=== PATIENT | female | born 2000 | race Two or more races ===

== ENCOUNTER 2024-02-04 17:40 | Inpatient (IN) | payer OTHER ==
[2024-02-04] MEDS: ELECTROLYTE-148 SOLN 1,000 ML IV SCH (18:45)
[2024-02-04 19:20] VITALS: BMI 32.8
[2024-02-04 19:20] LABS: BASO % 0.2 % (0-2.0); EOS % 0.2 % (0-4.5); HEMATOCRIT 35.1 % (32.4-45.2); HEMOGLOBIN 12.3 GM/dL (10.7-15.3); LYMPH % 19.5 % (8-40); MCH 30.7 pg (25.7-33.7); MCHC 34.9 g/dl (32.0-36.0); MEAN CELL VOLUME 87.8 fl (80-96); NEUT % 75.1 % (42.8-82.8); PLATELET COUNT 205 10^3/uL (134-434); RDW 14.2 % (11.6-15.6); WHITE BLOOD COUNT 7.8 K/mm3 (4.0-10.0)
[2024-02-04] MEDS: DINOPROSTONE 10 MG VAGINAL SUPPOSITORY VG ONE (19:20)
[2024-02-04 19:30] LABS: INR 0.94 (0.83-1.09); PROTHROMBIN TIME (PATIENT) 10.8 SEC (9.7-13.0)
[2024-02-04 19:32] LABS: ACTIVATED PTT 28.9 SECONDS (25.2-36.5)
[2024-02-04 19:33] LABS: POTASSIUM 3.7 mmol/L (3.5-5.1)
[2024-02-04 19:36] LABS: BLOOD UREA NITROGEN 15.7 mg/dL (7-18); CALCIUM 8.9 mg/dL (8.5-10.1)
[2024-02-04 19:40] LABS: CREATININE 0.7 mg/dL (0.55-1.3)
[2024-02-05] MEDS ORDERED: BUTORPHANOL TARTRATE 2 MG/ML VIAL ONE (01:39)
[2024-02-05] MEDS ORDERED: PROMETHAZINE HCL 25 MG/1 ML VIAL ONE (01:39)
[2024-02-05] MEDS: PROMETHAZINE HCL 25 MG/1 ML VIAL IVPB ONE (01:45)
[2024-02-05] MEDS: BUTORPHANOL TARTRATE 1 MG/ML VIAL IVPB ONE (01:45)
[2024-02-05] MEDS: AMPICILLIN - 2 GM in SODIUM CHLORIDE 100 ML IVPB ONE (02:15)
[2024-02-05] MEDS ORDERED: AMPICILLIN SODIUM 2 GM VIAL ONE (02:15)
[2024-02-05] MEDS ORDERED: AMPICILLIN SODIUM 1 GM VIAL ONE ×4 (05:57→18:47)
[2024-02-05] MEDS: AMPICILLIN - 1 GM in SODIUM CHLORIDE 100 ML IVPB SCH (06:00)
[2024-02-05] MEDS ORDERED: FENTANYL/BUPIVACAINE/NS/PF - PCEA - 50 ML DISP.SYRIN EP ONE ×4 (07:40→19:37)
[2024-02-05] MEDS ORDERED: BUPIVACAINE HCL/PF 0.25% (2.5MG/ML) 10 ML VIAL ONE ×3 (07:41→15:30)
[2024-02-05] MEDS ORDERED: FENTANYL CITRATE/PF 50 MCG/ML VIAL ONE ×8 (07:41→21:56)
[2024-02-05] MEDS ORDERED: morphine SULFATE/PF 1 MG/2 ML (2cc Syringe - QUVA) ONE ×3 (07:58→20:02)
[2024-02-05] MEDS: FENTANYL/BUPIVACAINE/NS/PF - PCEA - 50 ML DISP.SYRIN EP SCH (08:00)
[2024-02-05] MEDS ORDERED: ceFAZolin SODIUM 1 GM VIAL ONE (08:06)
[2024-02-05] MEDS ORDERED: SODIUM CHLORIDE 0.9% P/F 10 ML VIAL IJ ONE (08:06)
[2024-02-05] MEDS ORDERED: NALOXONE HCL 0.4 MG/ML VIAL IVPUSH PRN (08:25)
[2024-02-05] MEDS ORDERED: OXYTOCIN 30 UNITS in 0.9% NS 30 UNIT/500 ML INFUS.BAG IVPB ONE (09:52)
[2024-02-05] MEDS: OXYTOCIN 30 UNITS in 0.9% NS 30 UNIT/500 ML INFUS.BAG IVPB SCH (10:00)
[2024-02-05] MEDS: OXYTOCIN 20 UNITS in 0.9% NS 20 UNIT/1,000 ML INFUS.BAG IV SCH (11:05)
[2024-02-05] MEDS ORDERED: LIDO 2%/EPI 1:200000 PRESRVFRE (20 ML SDVIAL) ONE (15:30)
[2024-02-05] MEDS ORDERED: METHYLERGONOVINE MALEATE 0.2 MG/1 ML AMP IM PRN (19:35)
[2024-02-05] MEDS ORDERED: IBUPROFEN 800 MG/8 ML IJ IVPB PRN (19:35)
[2024-02-05] MEDS ORDERED: PROPOFOL 20 ML ONE ×3 (20:10→20:34)
[2024-02-05] MEDS ORDERED: SUCCINYLCHOLINE CHLORIDE 200 MG/10 ML SYRINGE ONE (20:11)
[2024-02-05] MEDS ORDERED: ROCURONIUM BROMIDE 50 MG/5 ML VIAL ONE (20:49)
[2024-02-05] MEDS ORDERED: SUGAMMADEX SODIUM 200 MG/2 ML VIAL ONE (20:52)
[2024-02-05 20:55] LABS: CORD HCO3 23.9 mmHg (20-29); CORD PCO2 54.2 mmHg (30-78); CORD pH 7.263 (7.14-7.44)
[2024-02-05] MEDS ORDERED: DEXAMETHASONE SOD PHOSPHATE 4 MG/1 ML VIAL ONE (21:47)
[2024-02-05] MEDS ORDERED: MIDAZOLAM HCL 2 MG/2 ML SINGLE DOSE VIAL ONE (21:57)
[2024-02-05] MEDS ORDERED: HYDROmorphone HCL CARPU-JECT 2 MG/1 ML DISP.SYRIN ONE (22:13)
[2024-02-05] MEDS ORDERED: OXYTOCIN 20 UNITS in 0.9% NS 20 UNIT/1,000 ML INFUS.BAG IV ONE (22:27)
[2024-02-05] MEDS ORDERED: HYDROmorphone *PCA* 10MG/50ML DISP.SYRIN ONE (22:40)
[2024-02-05] MEDS: HYDROmorphone *PCA* 10MG/50ML DISP.SYRIN PCA SCH (22:53)
[2024-02-06] MEDS: ACETAMINOPHEN 1000 MG/100 ML BAG IVPB ONE (01:43)
[2024-02-06] MEDS: CEFAZOLIN 1 GM in DEXTROSE 5%-WATER - 50 ML IVPB SCH (01:50)
[2024-02-06] MEDS: IBUPROFEN 600 MG TABLET (FP) PO PRN (07:20)
[2024-02-06 07:53] LABS: HEMATOCRIT 32.3 % (32.4-45.2); HEMOGLOBIN 11.3 GM/dL (10.7-15.3); LYMPH % 5.7 % (8-40); MCH 30.6 pg (25.7-33.7); MCHC 34.9 g/dl (32.0-36.0); MEAN CELL VOLUME 87.7 fl (80-96); MEAN PLT VOLUME 9.2 fl (7.5-11.1); MONO % 4.5 % (3.8-10.2); NEUT % 89.8 % (42.8-82.8); PLATELET COUNT 153 10^3/uL (134-434); RBC 3.68 M/mm3 (3.60-5.2); RDW 14.7 % (11.6-15.6); WHITE BLOOD COUNT 15.4 K/mm3 (4.0-10.0)
[2024-02-06] MEDS: ACETAMINOPHEN 325 MG TABLET (FP) PO PRN (08:28)
[2024-02-06] MEDS: SIMETHICONE 80 MG TAB.CHEW (FP) PO PRN (08:29)
[2024-02-06] MEDS: ENOXAPARIN NA (PORCINE) 40 MG/0.4 ML DISP.SYRIN SQ SCH (09:44)
[2024-02-06 13:36] VITALS: RESP 18
[2024-02-06] MEDS: oxyCODONE HCL 5 MG TABLET PO PRN (19:56)
[2024-02-06] MEDS: KETOROLAC TROMETHAMINE 30 MG/1 ML VIAL IM ONE (20:32)
[2024-02-07] MEDS: oxyCODONE HCL 5 MG TABLET PO PRN (00:17)
[2024-02-07] MEDS: BISACODYL 10 MG SUPP.RECT RC PRN (04:46)
[2024-02-08 07:58] LABS: BASO % 0.3 % (0-2.0); EOS % 0.9 % (0-4.5); HEMATOCRIT 29.1 % (32.4-45.2); HEMOGLOBIN 9.9 GM/dL (10.7-15.3); LYMPH % 24.2 % (8-40); MCH 30.3 pg (25.7-33.7); MCHC 34.1 g/dl (32.0-36.0); MEAN CELL VOLUME 88.7 fl (80-96); MEAN PLT VOLUME 8.8 fl (7.5-11.1); MONO % 4.9 % (3.8-10.2); NEUT % 69.7 % (42.8-82.8); PLATELET COUNT 162 10^3/uL (134-434); RBC 3.28 M/mm3 (3.60-5.2); RDW 14.6 % (11.6-15.6); WHITE BLOOD COUNT 7.7 K/mm3 (4.0-10.0)
[2024-02-08 08:37] VITALS: BP 108/64; PULSE 95; TEMP 98.3
== END 2024-02-08 13:00 | disposition home or self-care (01) | DRG 540 ==
LOC: JLDR 17:40 → J3W 02-06 01:33
PROVIDERS: ADMIT Obstetrics & Gynecology; ATTEND Obstetrics & Gynecology
PROC: 10D00Z1 Extraction of Products of Conception, Low, Open Approach (ICD-10-PCS; principal; 2024-02-05)
DX: O36.5930 Maternal care for other known or suspected poor fetal growth, third trimester, not applicable or unspecified (principal); Z3A.38 38 weeks gestation of pregnancy; Z37.0 Single live birth
CPT/HCPCS: 36415; 36430; 36600; 80048; 82803; 85025; 85610; 85730; 86780; 86850; 86900; 86901; 86922; 87340; 88307-TC; P9058